=== PATIENT | female | born 1955 | race Caucasian/White ===

== ENCOUNTER 2016-08-19 11:56 | Day surgery (SDC) | payer OTHER ==
[~2016-08-19] VITALS: Ht 162.6 cm; Wt 59.0 kg
[~2016-08-19 11:56] MED LIST: 0.9% Sodium Chloride 1,000 ML IV SCH; Sodium Chloride LOK Flush 10 mL Syringe IV PRN; fentaNYL-PF 50 mCg/mL 2 mL Inj IVPUSH PRN
[2016-08-19] MEDS ORDERED: CITA20TA11 PO (12:20)
[2016-08-19 12:25] VITALS: BP 99/67; PULSE 89; RESP 16; O2SAT 96
[2016-08-19 13:34] VITALS: BP 109/61; PULSE 68; RESP 14; O2SAT 98
[2016-08-19 13:43] VITALS: BP 101/63; PULSE 69; RESP 14; O2SAT 98
[2016-08-19 13:54] VITALS: BP 110/65; PULSE 80; RESP 14; O2SAT 98
--- NOTE | 2016-08-19 14:42 | ENDO ---
[address] [address] ENDOSCOPY PROCEDURE PATIENT: OSWALD CHEW : 1955 MR#: [id number] ADMIT: 08/19/2016 JOB ID: [id number] PROCEDURE: Colonoscopy. INDICATION: Screening. Patient's ASA classification is I. Mallampati score is I. MEDICATIONS: Versed 3 mg, fentanyl 75 mcg. INSTRUMENT USED: PCF H180 L Prep quality was good. PROCEDURE DETAILS: After informed consent was obtained, the patient was brought into the GI suite, where she was placed on oxygen via nasal cannula and monitored with continuous pulse oximeter, telemetry, and blood pressure monitoring. A time-out was performed. Then, she was placed in a left lateral decubitus position and medications were administered for sedation. Digital rectal exam was performed which was unremarkable. The colonoscope was then inserted into the rectum and advanced under direct visualization to the cecum, which was identified by the presence of the ileocecal valve and appendiceal orifice. Once the cecum was reached, the colonoscope was withdrawn back into the rectum and mucosa and lumen were examined. In the rectum, retroflexion was performed. Following retroflexion, remaining air in the rectum was suctioned, and procedure was completed. FINDINGS: 1. In the transverse colon, there was a diminutive polyp that was removed with cold biopsy forceps. 2. Scattered diverticula were seen throughout the left side of the colon. IMPRESSION: 1. Transverse colon polyp. 2. Left-sided diverticulosis. RECOMMENDATIONS: 1. Fiber-rich diet. 2. Repeat colonoscopy pending polyp pathology results. COMPLICATIONS: None. ESTIMATED BLOOD LOSS: Less than 5 mL. MTDD
--- NOTE | 2016-08-23 15:15 | PATH ---
SURGICAL PATHOLOGY Attending Physician:Emmanuel Byrnes CASE STATUS: Signed Out PATIENT NAME: OSWALD CHEW PID: [id number] : 1955 DATE COLLECTED:08/19/2016 20:38 SPECIMEN: Colon, Biopsy CLINICAL HISTORY: POLYP 1). TRANSVERSE COLON POLYP FINAL DIAGNOSIS: 1.TRANSVERSE COLON POLYP: POLYPOID-SHAPED FRAGMENTS OF COLON MUCOSA CONSISTENT WITH MUCOSAL POLYPOID REDUNDANCY. Negative for dysplasia and malignancy. ICD10 code K63.5 GROSS DESCRIPTION: The specimen is received in one formalin filled container labeled with the patient's name, sublabeled "transverse colon polyp" and consists of 2 portions of tissue which aggregate to 0.3 x 0.3 x 0.2 CM. The specimen is entirely submitted in one cassette. 08/19/2016 DAC MICRO DESCRIPTION: See diagnosis. ICD-9 CODES: CPT CODES: 1: 23731 Electronically Signed Out Wily Santana MD [facility] Pathology [facility] [address] [facility], [place] [address] Technical component performed at [facility], [facility] [address], [place], [address]
== END 2016-08-19 23:59 | disposition home or self-care (01) ==
LOC: END 11:56
PROVIDERS: ATTEND Internal Medicine Gastroenterology
DX: Z12.11 Encounter for screening for malignant neoplasm of colon (principal); K63.5 Polyp of colon; K57.30 Diverticulosis of large intestine without perforation or abscess without bleeding; Z79.899 Other long term (current) drug therapy
CPT/HCPCS: 45380; 99153; G0500; J2250; J3010; J7030